=== PATIENT | female | born 1940 ===

== ENCOUNTER 2023-12-22 10:14 | Outpatient (CLI) | payer OTHER, SELFPAY ==
--- NOTE | 2023-12-22 10:00 | DI.RAD_ITS ---
Exam(s) XR HIP LT COMPLETE AP PELVIS EXAM: XR HIP LT COMPLETE AP PELVIS CLINICAL HISTORY: left hip DJD; bony lucency on prior femur xrays. TECHNIQUE: 2D digital imaging was performed of the left hip. Three views were obtained. AP pelvis and lateral left hip views were obtained. COMPARISON: CR XR HIP MIN 2V LT from 09/12/2023 CR XR FEMUR 2V LT from 09/12/2023 FINDINGS: BONES: No acute fracture is present. No bony destructive lesion is seen. JOINTS: No dislocation present. There are moderate degenerative changes seen in the left hip characte rized by joint space narrowing and osteophytes. The patient has a prior left total hip replacement. SOFT TISSUE: Normal. IMPRESSION: 1. No acute or healing fracture or dislocation is identified. 2. Moderate degenerative changes seen in the left hip. DATA REPOSITORY: RADIATION DOSE DELIVERED:
== END 2023-12-22 10:15 | disposition home or self-care (01) ==
LOC: DIORS 10:15
PROVIDERS: PCP Physician Assistant Medical; Referring Provider Physician Assistant Medical; Visit Provider Physician Assistant
DX: M16.12 Unilateral primary osteoarthritis, left hip (principal)
CPT/HCPCS: 20611; 99203; J1010; 73502

== ENCOUNTER → 2024-05-10 10:16 | Outpatient (BNVA) | payer MEDICARE, SELFPAY | PROVIDERS: PCP Physician Assistant Medical; Referring Provider Physician Assistant Medical | DX: M16.12 Unilateral primary osteoarthritis, left hip (principal) | CPT/HCPCS: 20611; 99214; J1010 ==

== ENCOUNTER 2024-07-29 13:43 | Outpatient (CLI) | payer MEDICARE, SELFPAY ==
--- NOTE | 2024-07-29 13:30 | DI.RAD_ITS ---
Exam(s) XR HIP LT COMPLETE AP PELVIS EXAM: XR HIP LT COMPLETE AP PELVIS CLINICAL HISTORY: left hip DJD. TECHNIQUE: 2D digital imaging was performed. Two views. COMPARISON: CR XR HIP LT COMPLETE AP PELVIS from 12/22/2023 FINDINGS: BONES: No acute fracture is present. No bony destructive lesion is seen. Stable appearance of right t otal hip prosthesis. JOINTS: No dislocation present. The SI joints and pubic symphysis are intact. There are moderate yojana re degenerative changes of the left hip prominent periarticular spurring and joint space narrowing. Findings have mildly progressed from the prior exam. SOFT TISSUE: Vascular calcifications. IMPRESSION: Advanced degenerative changes of the left hip. Stable appearance of right hip prosthesis. DATA REPOSITORY: RADIATION DOSE DELIVERED:
== END 2024-07-29 13:44 | disposition home or self-care (01) ==
LOC: DIORS 13:43
PROVIDERS: PCP Physician Assistant Medical; Referring Provider Physician Assistant Medical; Visit Provider Student in an Organized Health Care Education/Training Program
DX: M16.12 Unilateral primary osteoarthritis, left hip (principal); Z96.641 Presence of right artificial hip joint
CPT/HCPCS: 99214; 73502

== ENCOUNTER 2025-01-31 02:58 | Outpatient (CLI) | payer MEDICARE, SELFPAY ==
[2025-01-31 11:07] LABS: HCT 41.3 % (36.0-46.0); HGB 13.4 g/dL (11.2-15.7); MCH 27.7 pg (27.0-33.0); MCHC 32.4 % (32.0-36.0); MCV 86 fL (80-95); MPV 10.5 fL (8.0-11.0); Platelet Count 292 10^3/uL (130-400); RBC 4.83 10^6/uL (3.93-5.22); RDW 14.8 % (11.7-14.6); RDW-SD 46.5 fL; WBC 9.89 10^3/uL (4.4-10.8)
[2025-01-31 11:29] LABS: Anion Gap 9.8 mmol/L (3-11); BUN 13 mg/dL (7-18); CO2 27.2 mmol/L (21.0-32.0); Calcium 9.1 mg/dL (8.5-10.1); Chloride 105 mmol/L (98-107); Glucose 107 mg/dL (74-106); Potassium 3.2 mmol/L (3.5-5.1); Sodium 142 mmol/L (136-145)
== END 2025-01-31 02:59 | disposition home or self-care (01) ==
LOC: LBO 03:00
PROVIDERS: PCP Physician Assistant Medical; Visit Provider Student in an Organized Health Care Education/Training Program
DX: M16.12 Unilateral primary osteoarthritis, left hip (principal); Z01.818 Encounter for other preprocedural examination
CPT/HCPCS: 36415; 80048; 85027

== ENCOUNTER 2025-02-05 07:16 | Observation (INO) | payer MEDICARE, SELFPAY ==
[2025-02-05] VITALS (40 sets, daily range): BP systolic 108–169; BP diastolic 51–79; PULSE 60–90; RESP 11–25; TEMP 36.5–37.2; O2SAT 92–99; BMI 18.3
--- NOTE | 2025-02-05 07:18 | W.PM.DSUDISC ---
Date of service: 02/05/25 Discharge Plan Disposition Condition: Good Discharge Details Reason For Visit: OA L Hip Admit Date/Time: 02/05/25 07:16 Admit Provider: Evgeny Cosme Attending Provider: Evgeny Cosme Primary Care Provider: Kiersten Garvin Home Meds and New Rx's Prescriptions: New acetaminophen 500 mg tablet 1,000 mg PO TID Qty: 90 3RF aspirin 81 mg tablet,delayed release (DR/EC) 81 mg PO BID Qty: 60 0RF celecoxib 200 mg capsule 200 mg PO BID Qty: 60 0RF dexamethasone 4 mg tablet 4 mg PO DAILY Qty: 2 0RF docusate sodium 100 mg capsule 100 mg PO BID PRNQty: 28 0RF tramadol 50 mg tablet 50 mg PO Q4H PRN (Reason: pain) Qty: 12 0RF Continued cetirizine 10 mg tablet 10 mg PO DAILY PRN diltiazem HCl 240 mg capsule,extended release 24hr 240 mg PO DAILY ketorolac 0.5 % drops 1 drp ophthalmic (eye) QID omeprazole 20 mg capsule,delayed release(DR/EC) 20 mg PO DAILY Prolia 60 mg/mL syringe 60 mg subcut [id number] Patient Comments: pt. unsure of next dose sertraline 100 mg tablet 100 mg PO DAILY cholecalciferol (vitamin D3) 10 mcg (400 unit) capsule 10 mcg PO DAILY cyanocobalamin (vitamin B-12) 1,000 mcg tablet 1,000 mcg PO DAILY Patient Comments: TAKE ONE TABLET BY MOUTH EVERY DAY folic acid 1 mg tablet 1 mg PO DAILY Patient Comments: TAKE ONE TABLET BY MOUTH EVERY DAY Discontinued acetaminophen 325 mg tablet 650 mg PO Q6H PRN No Action Systane Balance 0.6 % drops 1 drp ophthalmic (eye) DAILY PRN Discharge Instructions Additional Instructions: Total Hip Discharge Instructions Activity: The most important activity is to walk. You should try to take short walks a few times a day. You have no restrictions on movement or positioning, but do not try to force what you do. You will find some stiffness and weakness with hip flexion (lifting your knee). Do not try to strengthen this too early, continue to practice walking and stairs and this will come. - Outpatient physical therapy can be helpful to help return you to a normal gait and improve your flexibility and strength. This can start around 2 weeks. For some patients, it´s not necessary. Usually this is determined at the time of discharge or at the first post-operative visit. - You should wear the SADIQ hose on both legs for 2 weeks. Dressing: Keep the surgical dressing in place for at least one week. After the first week it may be removed and replace with light gauze and tape or nothing. It may get wet after 3 days but avoid soaking the dressing. If it gets wet, just lightly pat dry. It is important to always keep some gauze between skin folds, especially when you are sitting. Spend some time with the wound exposed when you are lying flat as the incision does wrinkle onto itself. Medications: - You should take Tylenol and an anti-inflammatory Celebrex as your primary pain control medications. If the Celebrex is too expensive or not covered, please call the office for another alternative (Advil/Ibuprofen or Naproxen/Aleve). - You have been prescribed a stronger pain medication tramadol for breakthrough pain, take as needed as prescribed. - You will continue your omeprazole to help reduce stomach acid and reflux. - You have also been prescribed Decadron to help with post-operative nausea and pain. You will take this for two days starting tomorrow. - You will be taking Aspirin 81mg twice a day for DVT prevention unless instructed otherwise. - If you have constipation you should take Colace or Miralax (both [id number]). It takes most people 3-4 days to have a bowel movement. Follow-up: 2 weeks If you have any acute concerns or questions, please do not hesitate to contact the office at [phone]. You may contact Dr. Cosme with any questions after hours through the hospital at [phone] or on his cell phone at [phone]. Stand Alone Forms: Anesthesia Discharge Inst., Guillermo Perry (U), Portal Information Referrals: Evgeny Cosme MD [ [facility] STAFF PHYSICIAN, Orthopaedic Surgical] - 02/17/25 1:45 pm Equipment/Supplies: Walker Activity:: Activity as Tolerated Shower/Bathe:: 72 hours Diet:: As Tolerated DS: Diagnosis Discharge Diagnosis (1) Degenerative joint disease of left hip: Status: Resolved
[2025-02-05 07:58] LABS: Potassium 3.5 mmol/L (3.5-5.1)
--- NOTE | 2025-02-05 08:11 | W.ANESPRE ---
General Info Date of Service Date Performed: 02/05/25 Height: 5 ft 2 in Weight: 45.5 kg Body Mass Index (BMI): 18.3 Surgical Procedure: Operation Date: 02/05/25 09:20 Proposed Procedure Side Surgeon p Hip Total Hip Anterior, Corail Left Evgeny Cosme MD Meds Allergies and Home Medications Allergies Allergy/AdvReac Type Severity Reaction Status Date / Time ciprofloxacin Allergy Severe tongue Verified 02/05/25 07:45 swelling Sulfa (Sulfonamide Allergy Severe Other (See Verified 02/05/25 07:45 Antibiotics) Comment) Home Medication Medication Instructions Recorded cetirizine 10 mg tablet 10 mg PO DAILY PRN 11/14/23 cholecalciferol (vitamin D3) 10 10 mcg PO DAILY 11/14/23 mcg (400 unit) capsule denosumab 60 mg/mL subcutaneous 60 mg subcut [id number] 11/14/23 syringe (Prolia) diltiazem HCl 240 mg 240 mg PO DAILY 11/14/23 capsule,extended release 24 hr ketorolac 0.5 % eye drops 1 drp ophthalmic (eye) QID 11/14/23 omeprazole 20 mg capsule,delayed 20 mg PO DAILY 11/14/23 release sertraline 100 mg tablet 100 mg PO DAILY 11/14/23 cyanocobalamin (vitamin B-12) 1,000 mcg PO DAILY 02/03/25 1,000 mcg tablet folic acid 1 mg tablet 1 mg PO DAILY 02/03/25 acetaminophen 500 mg tablet 1,000 mg (2 x 500 mg) PO TID #90 02/05/25 tabs aspirin 81 mg tablet,delayed 81 mg PO BID #60 tabs 02/05/25 release celecoxib 200 mg capsule 200 mg PO BID #60 caps 02/05/25 dexamethasone 4 mg tablet 4 mg PO DAILY #2 tabs 02/05/25 docusate sodium 100 mg capsule 100 mg PO BID PRN #28 caps 02/05/25 propylene glycol 0.6 % eye drops 1 drp ophthalmic (eye) DAILY PRN 02/05/25 (Systane Balance) tramadol 50 mg tablet 50 mg PO Q4H PRN pain #12 tabs 02/05/25 Current Visit Medications: Current Medications Generic Name Dose Route Start Last Admin Trade Name Freq PRN Reason Stop Dose Admin Acetaminophen 1,000 mg 02/05/25 06:00 Acetaminophen 500 Mg Tab PO 02/05/25 23:59 PREOP JUAN A Acetaminophen 1,000 mg 02/05/25 07:16 Acetaminophen 500 Mg Tab PO 03/07/25 07:15 TID PRN PRN Analgesia Celecoxib 400 mg 02/05/25 06:00 Celecoxib 200 Mg Cap PO 02/05/25 23:59 PREOP JUAN A Docusate Sodium 100 mg 02/05/25 07:16 Docusate Sodium 100 Mg Cap PO 03/07/25 07:15 BID PRN PRN Constipation Ringer's Solution 1,000 mls @ 80 mls/hr 02/05/25 06:00 IV 02/05/25 23:59 INFUSION JUAN A Cefazolin Sodium/Dextrose 2 gm in 50 mls @ 100 mls/hr 02/05/25 06:00 Ancef Duplex IVPB 02/05/25 23:59 PREOP JUAN A Tranexamic Acid/Sodium Chloride 1,000 mg in 100 mls @ 600 mls/hr 02/05/25 06:00 IVPB 02/05/25 23:59 PREOP JUAN A IV Miscellaneous Supplies 1 each 02/05/25 06:00 Iv Access IV 02/05/25 23:59 DIRECTED JUAN A Ondansetron HCl 4 mg 02/05/25 07:16 Ondansetron 4 Mg/2 Ml Vial IVP 03/07/25 07:15 Q6H PRN PRN Nausea Polyethylene Glycol 17 gm 02/05/25 07:16 Polyethylene Glycol 3350 17 Gm Packet PO 03/07/25 07:15 BID PRN PRN Constipation Sodium Chloride 0 ml 02/05/25 06:00 Normal Saline Flush 10 Ml Syr IV 02/05/25 23:59 PRN PRN Sodium Chloride 0 ml 02/05/25 06:00 Normal Saline 10 Ml Vial IJ 02/05/25 23:59 DIRECTED PRN Sterile Water 0 ml 02/05/25 06:00 Water,Injection,Sterile 10 Ml Vial IJ 02/05/25 23:59 DIRECTED PRN Tramadol HCl 50 mg 02/05/25 07:24 Tramadol 50 Mg Tab PO 03/07/25 07:23 Q4H PRN PRN PFSH Active Problems Active Problems: Problem Status Onset Code Degenerative joint disease of left hip Chronic M16.12 Tachycardia Acute R00.0 Medical History Medical History (Updated 02/05/25 @ 08:38 by Fifi Martin RN) H/O sigmoidoscopy w/polypectomy, DOS 08/27/18 Osteoarthritis of right knee Hypertensive disorder Hemorrhoids Surgical History Surgical History (Updated 02/05/25 @ 08:38 by Fifi Martin RN) History of total right hip replacement History of tubal ligation History of appendectomy History of cholecystectomy History of cataract surgery H/O wrist surgery Tobacco Smoking/Tobacco Use Status: Never Passive smoking exposure: No Alcohol Alcohol Intake: current Alcohol intake frequency: holidays/special occasions only Substance Use Substance use type: does not use Details: alcohol: t-30 Vital Signs and Lab Results Vital Signs Most Recent Vital Signs in EMR: Most Recent Vital Signs Temp Pulse Resp BP Pulse Ox 36.5 C 83 18 137/73 97 02/05/25 07:59 02/05/25 07:59 02/05/25 07:59 02/05/25 07:59 02/05/25 07:59 Lab Results 02/05/25 07:41 Complete Blood Count: WBC, (4.4-10.8) 9.89 10^3/uL 01/31/25, 11:00 RBC, (3.93-5.22) 4.83 10^6/uL 01/31/25, 11:00 Hgb, (11.2-15.7) 13.4 g/dL 01/31/25, 11:00 Hct, (36.0-46.0) 41.3 % 01/31/25, 11:00 Plt Count, (130-400) 292 10^3/uL 01/31/25, 11:00 Complete Metabolic Panel: Sodium, (136-145) 142 mmol/L 01/31/25, 11:00 Potassium, (3.5-5.1) 3.5 mmol/L Today, 07:41 Chloride, (98-107) 105 mmol/L 01/31/25, 11:00 Carbon Dioxide, (21.0-32.0) 27.2 mmol/L 01/31/25, 11:00 BUN, (7-18) 13 mg/dL 01/31/25, 11:00 Creatinine, (0.55-1.02) 0.6 mg/dL 01/31/25, 11:00 Est GFR (CKD-EPI 2020), (mL/min/1.73m2) 89.56 01/31/25, 11:00 Calcium, (8.5-10.1) 9.1 mg/dL 01/31/25, 11:00 Glucose, (74-106) 107 mg/dL H 01/31/25, 11:00 Anesthesia Assessment and Plan Anesthesia History Personal History: No History of Anesthesia Complications Family History: No Family History of Anesthesia Complications Exercise Tolerance Exercise Tolerance: Metabolic Equivalents>4 Pertinent Negatives Pertinent Negatives: No Symptoms of GERD, No Major Pulmonary Symptoms or Complaints and No History of CVA/TIA Cardiac & Pulmonary Exam Cardiac Exam: Normal S1/S2 Heart Sounds Pulmonary Exam: Clear Bilateral Breath Sounds Implantable Cardiac Device Does patient have a Pacemaker or an ICD?: No Airway Exam Known Difficult Airway: No Mallampati Class: 2 Mouth Opening: Normal (> 3cm) Thyromental Distance: Greater than 3 cm Neck Range of Motion: Full ROM Neck Circumference: Normal Teeth Condition: Generalized Poor Dentition and Removable Dentures/Plates Upper ASA Classification ASA Score: ASA 2 Emergency Case?: No NPO Status NPO Status: NPO Clears >2 hours, Solids >8 hours Anesthesia Plan Resuscitation Status: Full Code Anesthesia Technique: Spinal Anesthesia (Backup GETA. ) Airway Planned: Natural Airway Monitors Used: Standard Monitors Preoperative Comments:: History of hypokalemia with downward trend per VITL. Preoperative K drawn and resulted 3.5, good to proceed.
[2025-02-05] MEDS: Celecoxib 200 MG CAP 400 MG PO (08:14)
[2025-02-05] MEDS: Acetaminophen 500 MG TAB 1000 MG PO (08:14)
--- NOTE | 2025-02-05 08:15 | DI.RAD_ITS ---
Exam(s) XR HIP LT IN OR EXAM: XR HIP LT IN OR CLINICAL HISTORY: Degenerative joint disease of left hip. TECHNIQUE: 2D and realtime digital imaging was performed. COMPARISON: No exams were available for comparison FINDINGS: Hard copy images show placement of a left hip prosthesis. The alignment appears satisfactory. Please see procedure note for details. Fluoro time: 23.4seconds RADIATION DOSE DELIVERED: Ka,r=1.54 mGy
[2025-02-05] MEDS: Lactated Ringers 1,000 ML 80 ML IV (08:20)
--- NOTE | 2025-02-05 10:09 | ROE_ITS ---
Operative Note Operative Note PRE-OP DIAGNOSIS: Left Hip Osteoarthritis POST-OP DIAGNOSIS: same PROCEDURE: Left Anterior Total Hip Arthroplasty with Intraoperative Navigation SURGEON: Evgeny Cosme FOOD PRODUCTION MACHINE OPERATOR: Damien Carvalho ANESTHESIA TYPE: General LMA/ETT Refer to Anesthesia Record ESTIMATED BLOOD LOSS: 200 PATHOLOGY: none sent TOURNIQUET TIME: 0 COMPLICATIONS: None Patient was transported to: PACU Patient's condition: stable Implants: 1. Depuy Emphasys Acetabular Component, 50mm 2. Depuy Acetabular Liner, 63s97ek 3. Depuy Corail Short Neck 135 Degree Collared Femoral Stem, Size 13 4. Depuy Altrx Ceramic Femoral Head, Size 36+5mm Indications: I have seen Kasia in clinic for symptoms of hip arthritis, confirmed with radiographic findings. She has exhausted nonoperative methods and was having significant limitations in daily function and desired better function and less pain. I discussed the technical details of a hip replacement. I explained the risks of the procedure to include, but not limited to, bleeding, infection, pain, stiffness, fracture, damage to nerves and vessels, damage to muscles and tendons, loosening, instability, leg length inequality, need for repeat procedure, blood clot and cardiopulmonary demise. Despite these risks, Kasia elected to proceed. Findings: There was significant signs of arthritis throughout the hip. Procedure Description: Kasia was greeted in the preoperative holding area where the correct side was identified and marked. The consent was reviewed with the patient and signed. The history and physical was updated. All questions were answered. She was taken back to the operating room. A spinal anesthestic was then attempted but unsuccessful. Thus a general anesthetic was administered. The feet were wrapped with cast padding and Coban and then placed into the boot liners and then into the boots. Care was taken to protect the skin and make sure the heels were fully down and the boots were stable. The patient was then positioned onto the HANA table. Both legs were held in a neutral position. SCDs were applied. The patient was then slid down onto a peroneal post. Prophylactic antibiotics in the form of Cefazolin were administered. 1g of Tranxemic Acid was given intravenously within 30 minutes of incision. The left leg was then prepped with Chloraprep and draped in a standard fashion. A second prep with Chloraprep was performed prior to placement of a shower-curtain type drape with Iodine impregnated skin protection. A timeout to confirm correct identity, side and site, procedure, allergies, anesthesia, and medical concerns was performed. An obliquely oriented incision was made starting lateral to the ASIS and running distal over the Tensor Fascia Joie (TFL) muscle belly toward the fibular head, approximately 10cm. The skin and soft tissue was dissected sharply, through Chaka´s fascia, and to the fascia of the TFL. With the fascia and superior border of the IT band identified, the fascia was incised with a new knife just above any perforators from the IT band. The TFL muscle belly was bluntly dissected away from the fascia and moved laterally. The fat between TFL and rectus was identified to ensure the dissection was not within the TFL. Blunt dissection created space between abductors and the capsule and retractor was placed over the lateral femoral neck. The fibers of the rectus femoris tendon were identified and these were freed from the anterior capsule. A second cobra retractor was placed around the medial femoral neck. The TFL was further retracted laterally to show the deep fascia. Careful dissection through this layer identified three main crossing vessels of the lateral femoral circumflex. These were cauterized in multiple locations and then cut without any noticeable bleeding. The TFL was further released bluntly from the deep fascia to expose anterior hip capsule and fat The soft tissue orthopaedic retractor was then placed beneath the TFL and against sartorius and medial soft tissues to protect and retract the soft tissues. A T-capsulotomy was then performed starting at the superior lateral acetabulum and moving distally to the intertrochanteric ridge. These capsular flaps were tagged with a No. 1 Vicryl and elevated from within. The capsular flaps were released to the shoulder of the lateral neck and to the lesser trochanter to give excellent visualization of the proximal femur. A neck osteotomy was performed using an oscillating saw based on preoperative templates. This cut started in the shoulder and of the lateral neck and exited medially. The saw was at all times directed medially to avoid injury to the greater trochanter. Gross traction was applied to the leg and the osteotomy opened. The femoral head was removed with a corkscrew, making sure to protect the TFL on its exit. Traction was released after head removal. This was measured on the back table to determine the starting reamer size. Portions of the rectus obscuring visualization were minimally elevated off the superior acetabulum. An anterior retractor was placed over the anterior wall between capsule and labrum and attached to the Gripper retraction system. The femur was rotated to 90 degrees and medial capsule was fully released until the lesser trochanter was palpable and visible; the femur was returned to 30 degrees. A posterior retractor was placed similarly between capsule and labrum. This provided excellent visualization. The contents of the cotyloid fossa were removed with electrocautery and the labrum was removed with a knife. There was a notable floor osteophyte. There was significant chondromalacia of the superior acetabulum. Acetabular reaming began with a 46mm reamer. This first reaming was directed anterior to posterior and medial to get down to the true floor. This was inspected and reamed until the true floor was reached. The anterior retractor was then released and entry and exit was provided by traction on the capsular flaps. I then reamed sequentially up to a 50mm reamer where good fit was obtained. The larger reamers were oriented based on anatomical reference of the anterior and lateral mclaughlin to ensure proper abduction and anteversion. Positioning and size was confirmed with the fluoroscopy. A 50mm Depuy Emphasys acetabular component was selected. The acetabulum was reamed around the periphery with the selected acetabular size to prevent a rim fit. The deep tissues were irrigated. The acetabular component was then impacted in a position of about 40-45 degrees of abduction and 15-20 degrees of anteversion, using the patient´s anatomy as the ultimate landmark. Fluoroscopy was used to confirm this. There was excellent system configuration specialist of the acetabular component and the inserting handle was removed. The acetabular liner, Depuy [id number] polyethylene liner, was inserted and lined up with the tines of the acetabular component. There was no soft tissue interposition. The liner was then impacted into position and confirmed to be well-seated. A portion of the tracee-articular cocktail was then injected around the acetabulum into the capsule and periosteum. This cocktail consisted of 123mg of Ropivacaine, 0.25mg of Epinephrine, 0.04mg of Clonidine, and 15mg of Ketorolac, diluted to 50cc. The leg was rotated to 120 degrees. Any remaining medial capsule was released until the lesser trochanter was easily palpable. A retractor was placed medially. The lateral capsule was further released into the shoulder to allow access to the greater trochanter. A Doshi retractor was placed over the greater trochanter which allowed the trochanter to flip in front of the capsule for excellent exposure. The leg was brought down into maximal extension and 20 degrees of adduction while ensuring there was no impingement on the acetabulum. Any remnant capsule within the trochanter was released. Piriformis and obturator externis were identified and protected. There was excellent access to the proximal femur. The lateral neck remnant was removed with a rongeur. A blunt canal probe was used to identify the canal and trajectory for later broaching. A box osteotome initiated the broach course. A small curved rasp and a curved curette were used to work laterally. Broaching then began with a size 8 Corail broach. This was inserted manually around the trochanter and into the canal before mallet blows. The broach was seated to a few millimeters below the cut level based on the neck cut and the preoperative template. Sequential broaching was continued with the [employer] pneumatic broaching device until a tight fit was obtained with good rotational control of the femur. A trial short neck was inserted along with a +5 trial head. The leg was brought out of extension and adduction and then reduced with traction and internal rotation. The leg was stable anteriorly in a position of 30 degrees of extension and 90 degrees of external rotation. Fluoroscopy was used to ensure there was no fracture and the stem was seated well. Leg lengths were checked with an AP pelvis and pelvic reference points. Internal Gaming navigation system was used to confirm appropriate positioning and leg length and offset. Once content with the desired offset and leg lengths, the leg was brought back into extension, external rotation and adduction. The periosteum and surrounding tissue was injected with remaining portion of the tracee-articular cocktail. The proximal femur was irrigated as well as the deep tissues. The Depuy Corail short neck 135 degree collared stem, size 13, was then manually inserted into the proximal femur making sure to control rotation. It was then malleted into position with light blows, giving breaks to allow bone expansion and decrease risk of fracture. The selected Depuy Altrx Ceramic Head, size 36+5mm, was then placed onto the clean and dry trunnion and secured with impaction onto the tapered fit. The leg was brought back out of extension and adduction and reduced with traction and internal rotation. Stability was confirmed with no shuck at 90 degrees of external rotation and 30 degrees of extension. No impingement through range of motion arc. Final x-ray images were obtained with fluoroscopy to confirm adequate positioning and no intraoperative fracture. The deep tissues were thoroughly irrigated with Surgiphor, betadine solution. This was allowed to sit in the wound for 3 minutes before being thoroughly irrigated out with normal saline. The capsule was then reapproximated with the previously placed sutures and the indirect head of the rectus was inspected and reapproximated with a #1 Vicryl. The TFL fascia was finally closed with a No. 2 Stratafix, barbed suture. Deep tissues were then reapproximated with 0 Vicryl and a running 2-0 Vicryl. The skin was closed with a running 4-0 Monocryl in a subcuticular fashion. This was reinforced with skin glue. A Mepilex silver dressing was applied. At the end of the case, all counts were correct. Kasia was transferred to the hospital bed without difficulty and suffering no apparent complication. She has a good prognosis. Physical therapy will start today and without restrictions, weight-bearing as tolerated. Aspirin 81mg BID will be used for DVT prophylaxis. Date of Procedure: 02/05/25
[2025-02-05] MEDS: ceFAZolin 2 GM/50 ML BAG IVPB (10:14)
[2025-02-05] MEDS: TRANEXAMIC ACID/SOD. CHL. 1,000 MG/100 ML BAG 600 MG IVPB (10:20)
[2025-02-05] MEDS: EPINEPHrine 1 MG/ML AMP pres-free ×2 (10:33→13:02)
[2025-02-05] MEDS: ROPIvacaine 0.2% 200 MG/100 ML BAG ×2 (10:34→13:06)
[2025-02-05] MEDS: Ketorolac 30 MG/ML VIAL ×2 (10:34→13:06)
[2025-02-05] MEDS: fentaNYL 100 MCG/2 ML VIAL IVP ×2 (11:55→12:08)
--- NOTE | 2025-02-05 12:01 | W.ANESPOSTOP ---
Postoperative Evaluation Date, Time and Location Date Performed: 02/05/25 Time Performed: 12:01 Patient Location: Day Surgery Unit Vital Signs Most Recent Imported Vital Signs: Most Recent Vital Signs Temp Pulse Resp BP Pulse Ox 36.6 C 63 11 L 128/55 L 93 02/05/25 11:56 02/05/25 11:56 02/05/25 11:56 02/05/25 11:55 02/05/25 11:56 Pain Score Most Recent Pain Score: Most Recent Pain Score Pain Level 0 02/05/25 11:40 Assessment Mental Status: Arousable with meaningful communication Airway and Respiratory Function: Patent airway with normal (patient baseline) respiratory exam Cardiovascular Function: Hemodynamically Stable Hydration Status: Adequately Hydrated Nausea & Vomiting: No Nausea or Vomiting Pain: Pain is tolerable per patient Peripheral Nerve Block: Patient did not receive a nerve block
--- NOTE | 2025-02-05 12:59 | W.PC.ACHO ---
Registration Status: REG SDC Primary Language: Preferred Language: Medical / Surgical History (Last Reviewed 02/05/25 @ 08:01 by Aminta Castillo) H/O sigmoidoscopy Osteoarthritis of right knee Hypertensive disorder Hemorrhoids (Last Reviewed 02/05/25 @ 08:01 by Aminta Castillo) History of total right hip replacement History of tubal ligation History of appendectomy History of cholecystectomy History of cataract surgery H/O wrist surgery Most Recent Vital Signs Temperature 36.5 C 02/05/25 12:50 Pulse 62 02/05/25 12:50 Pulse Rhythm Regular 02/05/25 07:59 Pulse 69 02/05/25 12:35 Respiratory Rate 16 02/05/25 12:35 Respiratory Depth Normal 02/05/25 07:59 Blood Pressure 121/57 L 02/05/25 12:50 Blood Pressure Mean 81 02/05/25 12:31 Pulse Oximetry 96 02/05/25 12:50 Respiratory End-tidal CO2 33 02/05/25 12:27 Oxygen Delivery Method Nasal Cannula 02/05/25 12:50 Oxygen Flow Rate 2 02/05/25 12:50 Pain Level 3 02/05/25 12:40 Allergies ciprofloxacin Allergy (Severe, Verified 02/05/25 07:45) tongue swelling Sulfa (Sulfonamide Antibiotics) Allergy (Severe, Verified 02/05/25 07:45) Other (See Comment) throat tightness Active Medications Generic Name Dose Route Start Last Admin Trade Name Mackq PRN Reason Stop Dose Admin Acetaminophen 1,000 mg 02/05/25 06:00 02/05/25 08:14 Acetaminophen 500 Mg Tab PO 02/05/25 23:59 1,000 mg PREOP JUAN A Administration Celecoxib 400 mg 02/05/25 06:00 02/05/25 08:14 Celecoxib 200 Mg Cap PO 02/05/25 23:59 400 mg PREOP JUAN A Administration Ringer's Solution 1,000 mls @ 80 mls/hr 02/05/25 06:00 02/05/25 12:21 IV 02/05/25 23:59 80 mls/hr INFUSION JUAN A Infusion Cefazolin Sodium/Dextrose 2 gm in 50 mls @ 100 mls/hr 02/05/25 06:00 02/05/25 10:35 Ancef Duplex IVPB 02/05/25 23:59 Infused PREOP JUAN A Infusion Tranexamic Acid/Sodium Chloride 1,000 mg in 100 mls @ 600 mls/hr 02/05/25 06:00 02/05/25 10:30 IVPB 02/05/25 23:59 Infused PREOP JUAN A Infusion IV IV Catheter Type [Right Wrist] Peripheral IV IV Catheter Gauge [Right Wrist 20 ] Diet Orders Category Date Time Status Regular/Normal [DIET] Nutrition 02/05/25 Lunch Active Diagnostics 02/05/25 Range/Units 07:41 Potassium 3.5 (3.5-5.1) mmol/L Intake and Output - 24 Hour Total 01/01/25 07:22 thru 02/05/25 12:40 Intake Total 900 Output Total 200 Balance 700 Weight 45.5 kg Intake: IV 900 Output: Estimated Blood Loss 200 Other: Emesis Description None Attestation Statement: By documenting the first initial, last name, and credentials of the reporting nurse below, both parties acknowledge that all relevant information regarding the patient handoff has been communicated, and that all questions have been addressed to ensure continuity and safety of care. Additional Patient Information/Comments: Report Received From: Report received from PACU, Shama NICE. Mary total hip replacement. stable, pt states i have cow webs general anesthesia given, see pacu report for angie. arrived to unit with this RN
[2025-02-05] MEDS: Tranexamic Acid 650 MG TAB 1300 MG PO (13:01)
--- NOTE | 2025-02-05 14:21 | PHA.REVIEW2 ---
Pharmacy Admission Review Admission Clinical Review Admission Pharmacy Review: ciprofloxacin Allergy (Severe, Verified /03/20 07:45) tongue swelling Sulfa (Sulfonamide Antibiotics) Allergy (Severe, Verified 02/05/25 07:45) Other (See Comment) Resuscitation Status Full Code Height 5 ft 2 in Weight 45.5 kg Comments Comments/Follow Ups: POD#0 Left Anterior Total Hip Arthroplasty with Intraoperative Navigation Pharmacy Admission Review Renal Dosing Medications needing adjustments: Reviewed (CrCl 31.11 mL/min) List of meds needing interventions: Current medications are okay Anticoagulation DVT Prophylaxis: Reviewed (SCDs/TEDs - POD#0) Relevant Labs Relevant Labs: Potassium 3.5 mmol/L (3.5-5.1) 02/05/25 07:41 Electrolytes, C-Reactive P, ESR: Reviewed (No new labs) Cardiac Review BP, HR, EF%: Reviewed (BP and HR WNL) List meds needing interventions: Has order for diltiazem CD 240mg daily QTc Review QTc: Reviewed (No EKG on file) IV to PO Switch IV Medications: Reviewed (ondansetron) Home Meds Home Med List reviewed: Reviewed Relevent Home Meds Not ordered & why?: vitamin D3, vitamin B12, Prolia (every 6 months), ketorolac eye drops and Systane eye drops (PRN) Current Meds Current Medication Order Review: Intervened Comments: Discontinued preop orders (complete) Comments Comments/Follow Ups: POD#0 Left Anterior Total Hip Arthroplasty with Intraoperative Navigation
--- NOTE | 2025-02-05 14:50 | IN_ITS ---
PT Notes Visit Reasons: L THR Physical Therapy Inpatient Initial Evaluation Date: 02/05/2025 Referring Doctor: GAURI Johnston PT Orders: PT CONSULT: S/P Ortho surgery Precautions: Fall. Standard. WBAT on the left LE with AD. Patient Profile/Admitting Diagnosis: Kasia is an 84-year-old female with degenerative joint disease of the left hip and is status post left total hip arthroplasty on postoperative day 0. 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 Independent with all aspects of ADLs prior to surgery although was using her walker just a few days prior to surgery due to worsening pain in the left hip. Equipment Owned/DME: FWW Subjective: Complained of 0/10 pain in the left hip at rest. Reported soreness on the left hip with weightbearing and movement. Denied headache, chest pain, and lightheadedness throughout session. Objective: General Observation: Mepilex Ag over surgical incision. TEDS to be legs. IV through right UE. Mental Status: Alert and oriented as to person, place, time, and purpose. Able to pay attention, focus, and respond appropriately. Pain: As above Vital Signs: BP 124/79 mmHg, 75 bpm, and 90% on RA before mobility assessment. ROM: Right Lower Extremity: Hip flexion WFL. Hip abduction WFL. Knee flexion WFL. Ankle dorsiflexion WFL. Ankle plantarflexion WFL. Left Lower Extremity: Hip flexion WFL. Hip abduction WFL. Knee flexion WFL. Ankle dorsiflexion WFL. Ankle plantarflexion WFL. Strength: Right Lower Extremity: Hip flexors 4/5. Hip abductors 4/5. Knee flexors 4/5. Knee extensors 4-/5. Ankle dorsiflexors 4/5. Ankle plantarflexors 4/5. Left Lower Extremity: Hip flexors 4-/5. Hip abductors 4-/5. Knee flexors 4/5. Knee extensors 4/5. Ankle dorsiflexors 4/5. Ankle plantarflexors 4/5. Bed Mobility/Transfers: Minimal cueing provided for use of B hands as needed for support, movement sequence, AD management, and posture to reduce fall risk and minimize pain report Supine to sit stand by assist with HOB at 30 degrees Sit to stand stand by assist with FWW Stand to sit stand by assist with FWW Bed to toilet seat stand by assist with FWW Bed to reclining chair stand by assist with FWW Gait: 250 feet with FWW and contact guard assist of PT and wheelchair follow. Minimal verbal cueing for AD management, posture, limb movement sequence and weight distribution onto walker for safety to decrease pain level and reduce pain report. Denied chest pain, lightheadedness, and headache thorughout session. Balance: Static Sitting: Normal Dynamic Sitting: Normal Static Standing: Fair Dynamic Standing: Fair Special Tests: Mobility Limitations Standardized Measure [facility] AM-PAC 6 clicks Basic Mobility Inpatient Short Form: Raw Score: 22 CMS Score: 21% deficit Informed Consent/Education: Patient was instructed in purpose of PT consult and plan of care. Agreeable to proceed with established PT POC to achieve personal goals. Trained patient with correct performance of exercises below to maximize motor control, joint flexibility, soft tissue extensibility of the L hip musculature to facilitate return to independent functional mobility performance. Access Code: [email or web address] URL: [email or web address] Date: 02/05/2025 Prepared by: Angela Schultz Exercises - Gluteal Sets - 1 x daily - 7 x weekly - 1 sets - 10 reps - 5 hold - Supine Heel Slide - 1 x daily - 7 x weekly - 1 sets - 10 reps - 5 hold - Supine Ankle Pumps - 1 x daily - 7 x weekly - 1 sets - 10 reps - 5 hold - Seated March - 1 x daily - 7 x weekly - 1 sets - 10 reps - 5 hold - Seated Long Arc Quad - 1 x daily - 7 x weekly - 1 sets - 10 reps - 5 hold Assessment: Patient requires the use of a front wheeled walker for mobility ADL performance to maximize independence and reduce fall risk. Only reported minimal soreness on the left hip with weight bearing. Patient presents with clinical signs and symptoms consistent with current/admitting diagnoses that have resulted to mobility limitations, gait instability, generalized weakness, and overall ADL decline as demonstrated by the following impairment level findings: 1. Decreased strength to L hip major muscle groups 2. Impaired standing balance 3. Impaired activity tolerance Impairments are contributing to the following functional limitations: 1. Decline in bed mobility skills 2. Decline in transfer skills 3. Difficulty with ambulation without assistive device and physical assistance 4. Increased completion time for mobility ADL performance 5. Increased risk for falls 6. Difficulty with managing steps alone safely Patient is assessed as a [id number] moderate complexity complexity based on the following: History: 84-year-old female with past medical history as indicated above Examination: Demonstrable impairment in strength, balance, and mobility level with underlying impairments and functional limitations as exhibited above as well as deficit score of 21% utilizing the [facility] Mobility Inpatient Short Form Presentation: Evolving Decision Makin moderate complexity Goals: Goals X1 week 1. Supine-Sit independent 2. Sit-Supine independent 3. Sit-Stand independent 4. Stand-Sit independent with FWW 5. Bed-Chair independent with FWW 6. Chair-Bed independent with FWW 7. Independent gait on level surface with use of FWW for at least 300 feet without report of pain nor dyspnea 8. Independent stair negotiation while holding onto B rails for at least 5 steps without report of pain nor dyspnea 9. Independent with home exercise program 10. Good static and dynamic standing balance/tolerance Plan of Care/Treatment Plan: 1-2x/day, 7 days/week x 1 week. Plan of care has been reviewed with the ALLOCATIONS CLERK providing the service under Physical Therapy direction. Initiate Physical Therapy intervention for pain management as needed, strengthening, bed mobility, transfers, gait, stairs, balance training, and use of assistive device. DISCHARGE RECOMMENDATIONS: Home when medically cleared by orthopedic surgeon. Recommend outpatient PT services in order to optimize functional mobility outcomes and facilitate return to independent community ambulation without an assistive device. TREATMENT CODE/TIME: 28148 x 27 minutes for 1 unit (14: 50–15: 17). Thank you for the opportunity to participate in the care of this patient. Angela Schultz PT, DPT, CLT [facility] [place], [place]
[2025-02-05] MEDS: Normal Saline Flush 10 ML SYR IVP (20:23)
[2025-02-05] MEDS: Celecoxib 200 MG CAP PO (20:23)
[2025-02-05] MEDS: Cetirizine 10 MG TAB PO (20:37)
[2025-02-06 03:33] VITALS: BP 132/75; PULSE 82; RESP 18; TEMP 36.5; O2SAT 95
--- NOTE | 2025-02-06 07:37 | PT.INTREAT ---
PT Notes Visit Reasons: OA L Hip Physical Therapy Inpatient Treatment Note Date: 02/06/2025 Precautions: Fall. Standard. WBAT on the left LE with AD. Subjective: Kasia is in good spirits, looking forward to going home. Reported diminishing soreness in the L hip today. Objective: General Observation: Mepilex Ag over surgical incision. TEDS to be legs. IV access through right UE. Mental Status: Alert and oriented as to person, place, time, and purpose. Able to pay attention, focus, and respond appropriately. Pain: As above Vital Signs: BP 113/71 mmHg, 91 bpm, and 94% on RA before mobility assessment. Bed Mobility/Transfers: Minimal cueing provided for use of B hands as needed for support, movement sequence, AD management, and posture to reduce fall risk and minimize pain report Supine to sit independent Sit to stand independent with FWW Stand to sit independent with FWW Bed to toilet seat independent with FWW Bed to reclining chair independent with FWW Gait: 350 feet in AM, 350 feet in PM with FWW supervision only. Minimal verbal cueing for AD management, posture, limb movement sequence and weight distribution onto walker for safety to decrease pain level and reduce pain report. Denied chest pain, lightheadedness, and headache throughout session. Balance: Static Sitting: Normal Dynamic Sitting: Normal Static Standing: Fair Dynamic Standing: Fair Both in AM and PM sessions, trained patient with correct performance of exercises below to maximize motor control, joint flexibility, soft tissue extensibility of the L hip musculature to facilitate return to independent functional mobility performance. Access Code: [email or web address] URL: [email or web address] Date: 02/05/2025 Prepared by: Angela Schultz Exercises - Gluteal Sets - 1 x daily - 7 x weekly - 1 sets - 10 reps - 5 hold - Supine Heel Slide - 1 x daily - 7 x weekly - 1 sets - 10 reps - 5 hold - Supine Ankle Pumps - 1 x daily - 7 x weekly - 1 sets - 10 reps - 5 hold - Seated March - 1 x daily - 7 x weekly - 1 sets - 10 reps - 5 hold - Seated Long Arc Quad - 1 x daily - 7 x weekly - 1 sets - 10 reps - 5 hold Assessment: Patient requires the use of a front wheeled walker for mobility ADL performance to maximize independence and reduce fall risk. Only reported minimal soreness on the left hip with ambulation task performance. Plan of Care/Treatment Plan: Discharge to home with HEP at [facility] using her FWW. Follow up visit with Dr. Cosme in 2 weeks per protocol. DISCHARGE RECOMMENDATIONS: Home when medically cleared by orthopedic surgeon. Recommend outpatient PT services in order to optimize functional mobility outcomes and facilitate return to independent community ambulation without an assistive device. TREATMENT CODE/TIME: Session 1--02341 x 25 minutes for 2 units (7:37-8:02). Session2 --[id number] x 15 minutes for 1 unit (13;15-1330).
[2025-02-06 07:40] VITALS: BP 113/71; PULSE 89; RESP 17; TEMP 36.4; O2SAT 94
--- NOTE | 2025-02-06 07:53 | PDOC.CMIN ---
Date of service: 02/06/25 Time of Service: 07:54 Care Management Initial Assmt Initial Assessment Reason for Hospitalization: left total hip arthroplasty Functional Status/Living Situation Patient Presentation: Kasia presented yesterday for a left hip replacement. This morning she was sitting up in the chair and denied any pain. She stated that she feels great! She is eager to go home. She has food already prepared for her and feels well supported by her daughter and good friend. Kasia was disappointed to know that she is not able to drive until she has her f/u appointment with ortho. Kasia was very pleasant. She was pleased to introduce her daughter to CM. Kasia denies any worries regarding going home. Town of Residence: [place] Resides with: Alone Significant Other/Family: Local (daughter, Yazmin. Good friend just down the street.) Natural Supports: Yazmin is biggest support Employment Status: Retired Instrumental Activities of Daily Living (ADLs): Independent Medications Medication Management: No Issues/Barriers identified Physical Functioning/Mobility Assistive Device: using a walker prior to surgery but is hopeful to no longer need it Advance Directives Advance Directives: Do you have an Advance Directive: Y 12/22/23, 09:26 AD On File at [facility]: N 12/22/23, 09:26 Date Asked 01/30/25 01/30/25, 12:49 AD Date Reviewed COLST On File at [facility] COLST Date Scanned Code Status Resuscitation Status Full Code Insurance Coverage/Financial Issues Insurance: AARP/.[facility] Mcr Replacement Care Team Visit Care Team Role Provider Type Kiersten Garvin Primary Care Provider [facility] ABUSE THERAPIST InPatient [facility] Hernandez Other Providers OTHER Evgeny Cosme MD Admit Provider [facility] STAFF PHYSICIAN Attending Provider Discharge Potential Discharge Needs: PCP F/U Appt and Surgical F/U Appt (ortho scheduled on 02/17 at 1;45) Anticipated Barriers to Discharge: None Identified Patient/Family Education Needs: Review discharge instructions, discuss Ask Me Three Transportation: Private vehicle Plan: Kasia will discharge home this afternoon with no new services. She will f/u with her PCP and with Dr. Cosme on 02/17 at 1:45 Kasia will transport home in a private vehicle with her daughter. Social Determinants of Health Screening Social Determinants of health last assessed in clinic: 02/06/25 Will the Patient Participate in the Screening?: Yes Do you worry about having a steady place to live?: no Problems where you live: no known problems In the past 12 months, have you had to go without electric, gas, oil or water in your home?: no 1. Within the past 12 months, we worried whether our food would run out before we got money to buy more.: Don't know/refused 2. Within the past 12 months, the food we bought just didn't last and we didn't have money to get more.: Don't know/refused Has lack of transportation kept you from medical appointments or from doing things needed for daily living?: no Has anyone in your life made you feel unsafe or unsupported?: no How hard is it for you to pay for the very basics like food, housing, medical care, and heating? Would you say it is:: Not hard at all Do you want help finding or keeping work or a job?: I do not need or want help If for any reason you need help with day-to-day activities such as bathing, preparing meals, shopping, managing finances, etc., do you get the help you need?: I get all the help I need How often do you feel lonely or isolated from those around you?: Never Do you speak a language other than Burkinan at home?: Yes Does the patient want assistance with any of the above?: No Health Related Social Needs Health related social needs: education (Z55.6) Health related social needs details: none per patient PFSH All Active Problems History of total left hip arthroplasty (Acute 02/05/25) Tachycardia (Acute) Medical History H/O sigmoidoscopy w/polypectomy, DOS 08/27/18 Osteoarthritis of right knee Hypertensive disorder Hemorrhoids Surgical History History of total right hip replacement History of tubal ligation History of appendectomy History of cholecystectomy History of cataract surgery H/O wrist surgery Social History Smoking/Tobacco Use Status: Never Smoking risk assessment performed?: Yes Alcohol Intake: current Alcohol Intake frequency: holidays/special occasions only Drug use: Never Substance use type: does not use Details: alcohol: t-30 Housing: house Do you feel safe at home: Yes Do you feel safe in your relationship?: Yes Additional [facility]
[2025-02-06] MEDS: Normal Saline Flush 10 ML SYR IVP (08:37)
[2025-02-06] MEDS: Acetaminophen 500 MG TAB 1000 MG PO ×2 (08:37→13:49)
[2025-02-06] MEDS: Celecoxib 200 MG CAP PO (08:38)
[2025-02-06] MEDS: Sertraline 100 MG TAB PO (08:38)
[2025-02-06] MEDS: Omeprazole 20 MG CAPCR PO (08:38)
[2025-02-06] MEDS: dilTIAZem CD 120 MG CAPCR 240 MG PO (08:38)
[2025-02-06] MEDS: Folic Acid 1 MG TAB PO (08:38)
[2025-02-06] MEDS: Cetirizine 10 MG TAB PO (08:46)
--- NOTE | 2025-02-06 10:18 | DSE_ITS ---
Date of service: 02/06/25 Time of Service: 09:50 DS: Diagnosis Discharge Diagnosis (1) Degenerative joint disease of left hip: Status: Resolved Discharge Plan Disposition Patient Disposition: Home Condition: Good Discharge Details Reason For Visit: OA L Hip Admit Date/Time: 02/05/25 07:16 Admit Provider: Evgeny Cosme Attending Provider: Evgeny Cosme Primary Care Provider: Kiersten Garvin Hospital Course Hospital Course: Patient was admitted to the medical/surgical floor following the procedure. The surgery was tolerated well without any notable medical, surgical, or anesthetic complications. Mobilization began postoperatively. She was voiding spontaneously. Vitals were stable. Physical therapy worked with the patient and was cleared for discharge home. No acute medical issues. Pain was controlled on oral regimen. Home Meds and New Rx's Prescriptions: New acetaminophen 500 mg tablet 1,000 mg PO TID Qty: 90 3RF aspirin 81 mg tablet,delayed release (DR/EC) 81 mg PO BID Qty: 60 0RF celecoxib 200 mg capsule 200 mg PO BID Qty: 60 0RF dexamethasone 4 mg tablet 4 mg PO DAILY Qty: 2 0RF docusate sodium 100 mg capsule 100 mg PO BID PRNQty: 28 0RF tramadol 50 mg tablet 50 mg PO Q4H PRN (Reason: pain) Qty: 12 0RF Continued cetirizine 10 mg tablet 10 mg PO DAILY PRN diltiazem HCl 240 mg capsule,extended release 24hr 240 mg PO DAILY ketorolac 0.5 % drops 1 drp ophthalmic (eye) QID omeprazole 20 mg capsule,delayed release(DR/EC) 20 mg PO DAILY Prolia 60 mg/mL syringe 60 mg subcut [id number] Patient Comments: pt. unsure of next dose sertraline 100 mg tablet 100 mg PO DAILY cholecalciferol (vitamin D3) 10 mcg (400 unit) capsule 10 mcg PO DAILY cyanocobalamin (vitamin B-12) 1,000 mcg tablet 1,000 mcg PO DAILY Patient Comments: TAKE ONE TABLET BY MOUTH EVERY DAY folic acid 1 mg tablet 1 mg PO DAILY Patient Comments: TAKE ONE TABLET BY MOUTH EVERY DAY Discontinued acetaminophen 325 mg tablet 650 mg PO Q6H PRN No Action Systane Balance 0.6 % drops 1 drp ophthalmic (eye) DAILY PRN Discharge Instructions Additional Instructions: Total Hip Discharge Instructions Activity: The most important activity is to walk. You should try to take short walks a few times a day. You have no restrictions on movement or positioning, but do not try to force what you do. You will find some stiffness and weakness with hip flexion (lifting your knee). Do not try to strengthen this too early, continue to practice walking and stairs and this will come. - Outpatient physical therapy can be helpful to help return you to a normal gait and improve your flexibility and strength. This can start around 2 weeks. For some patients, it´s not necessary. Usually this is determined at the time of discharge or at the first post-operative visit. - You should wear the SADIQ hose on both legs for 2 weeks. Dressing: Keep the surgical dressing in place for at least one week. After the first week it may be removed and replace with light gauze and tape or nothing. It may get wet after 3 days but avoid soaking the dressing. If it gets wet, just lightly pat dry. It is important to always keep some gauze between skin folds, especially when you are sitting. Spend some time with the wound exposed when you are lying flat as the incision does wrinkle onto itself. Medications: - You should take Tylenol and an anti-inflammatory Celebrex as your primary pain control medications. If the Celebrex is too expensive or not covered, please call the office for another alternative (Advil/Ibuprofen or Naproxen/Aleve). - You have been prescribed a stronger pain medication tramadol for breakthrough pain, take as needed as prescribed. - You will continue your omeprazole to help reduce stomach acid and reflux. - You have also been prescribed Decadron to help with post-operative nausea and pain. You will take this for two days starting tomorrow. - You will be taking Aspirin 81mg twice a day for DVT prevention unless instructed otherwise. - If you have constipation you should take Colace or Miralax (both [id number]). It takes most people 3-4 days to have a bowel movement. Follow-up: 2 weeks If you have any acute concerns or questions, please do not hesitate to contact the office at [phone]. You may contact Dr. Cosme with any questions after hours through the hospital at [phone] or on his cell phone at [phone]. Stand Alone Forms: Anesthesia Discharge Inst., Guillermo Perry ([facility]), Portal Information Referrals: Evgeny Cosme MD [ [facility] STAFF PHYSICIAN, Orthopaedic Surgical] - 02/17/25 1:45 pm Activity:: Activity as Tolerated Equipment/Supplies:: Walker Diet:: As Tolerated Discharge Orders Discharge Orders: Discharge Order (Routine); Ordered 02/05/25 Ordered By: Damien Carvalho DS: Summary Time Spent with Patient providing and/or coordinating discharge services: Less than 30 minutes Status at Discharge Functional status at discharge: uses cane/walker Overall status at discharge: patient is progressing back to baseline Mental Status: mental status grossly normal Speech and Movement: speech and movement normal Mood: congruent mood Affect: normal affect Quality:SDOH Health Related Social Needs: Health related social needs education Health related social needs details none per patient Health related social needs details: none per patient Exam Narrative Exam Narrative: Left hip wound c/d/i. Ambulating without limp and without pain. SILT DP/SP/Tib. Psych Mental Status: mental status grossly normal Speech and Movement: speech and movement normal Mood: congruent mood Affect: normal affect DS: Data Vitals/I&O Vitals and I&O: Vital Signs Temperature 36.4 C L 02/06/25 07:40 Temperature Source Temporal Artery Scan 02/06/25 03:33 Pulse 89 02/06/25 07:40 Pulse Rhythm Regular 02/05/25 12:50 Pulse 69 02/05/25 12:35 Respiratory Rate 17 02/06/25 07:40 Respiratory Effort Normal 02/05/25 12:50 Respiratory Depth Normal 02/05/25 12:50 Blood Pressure 113/71 02/06/25 07:40 Blood Pressure Mean 85 02/06/25 07:40 Pulse Oximetry 94 02/06/25 07:40 Respiratory End-tidal CO2 33 02/05/25 12:27 Oxygen Delivery Method Room Air 02/06/25 07:40 Oxygen Flow Rate 0 02/06/25 07:40 Pain Level 2 02/06/25 08:37 Intake & Output 02/05/25 02/05/25 02/06/25 11:59 23:59 11:59 Intake Total 850 / 1400 550 / 1400 790 / 790 Output Total 200 / 200 Balance 650 / 1200 550 / 1200 790 / 790 Weight 45.5 kg Intake: IV 850 / 1160 310 / 1160 Oral 240 / 240 790 / 790 Output: Estimated Blood Loss 200 / 200 Other: Urine Color Yellow Yellow Urine Appearance Clear Clear Urine Odor Normal Normal Comment pt voids to toilet. pt voids to toilet. Emesis Description None None Data Completed and Pending Pending Labs at Discharge: 02/05/25 07:41 Potassium 3.5 PFSH All Active Problems History of total left hip arthroplasty (Acute 02/05/25) Tachycardia (Acute) Medical History H/O sigmoidoscopy w/polypectomy, DOS 08/27/18 Osteoarthritis of right knee Hypertensive disorder Hemorrhoids Surgical History History of total right hip replacement History of tubal ligation History of appendectomy History of cholecystectomy History of cataract surgery H/O wrist surgery Social History Smoking/Tobacco Use Status: Never Smoking risk assessment performed?: Yes Alcohol Intake: current Alcohol Intake frequency: holidays/special occasions only Drug use: Never Substance use type: does not use Details: alcohol: t-30 Housing: house Do you feel safe at home: Yes Do you feel safe in your relationship?: Yes Additional Social history: [facility] Time Spent with Patient Time Spent with Patient: <45 minutes Time was spent: preparing to see the patient(eg.review tests), obtaining and/or reviewing separately otained hiistory, counseling the patient and care coordination
--- NOTE | 2025-02-06 14:00 | PDOC.CMDIS ---
Date of service: 02/06/25 Time of Service: 14:01 LACE Index Scoring Tool Questions: Length of Stay (in days): 1 Was the patient admitted via the E.D.?: No E.D. Visits: 0 Answers: Total Score: 1 Risk of Readmission: Low Risk Care Management Discharge Plan Reason for Hospitalization: Left total hip replacement Discharge Plan: Kasia is discharged home today with no new home care services. She will f/u with ortho on 02/17 at 1:45 and also with her PCP. Kasia was given very good written discharge instructions and denied any questions or concerns. Kasia will transport home in a private vehicle with her daughter. Patient/Family Education Needs: Review of discharge instructions, activity, limitations, and discuss Ask me 3. SDOH Health Related Social Needs: Health related social needs education Health related social needs details none per patient Health related social needs details: none per patient
== END 2025-02-06 14:56 | disposition home or self-care (01) ==
LOC: SUR 07:18 → MS 02-06 07:41
PROVIDERS: Nurse Anesthetist, Certified Registered; Admitting Provider Student in an Organized Health Care Education/Training Program; PCP Physician Assistant Medical; Visit Provider Student in an Organized Health Care Education/Training Program
PROC: (CPT 27130; principal; 2025-02-05 09:00)
DX: M16.12 Unilateral primary osteoarthritis, left hip (principal); Z79.899 Other long term (current) drug therapy; I10 Essential (primary) hypertension; Z96.641 Presence of right artificial hip joint; E53.8 Deficiency of other specified B group vitamins; E78.1 Pure hyperglyceridemia; R00.0 Tachycardia, unspecified; D50.9 Iron deficiency anemia, unspecified; E83.42 Hypomagnesemia
CPT/HCPCS: 27130; 20985; 97162; 97530; 73501; 84132; C1776; G0378; J0166; J0690; J1100; J1171; J1885; J2371; J2401; J2405; J2704; J2795; J3010; J3475

== ENCOUNTER 2025-02-17 14:29 | Outpatient (CLI) | payer MEDICARE, SELFPAY ==
--- NOTE | 2025-02-17 13:45 | DI.RAD_ITS ---
Exam(s) XR HIP LT COMPLETE AP PELVIS EXAM: XR HIP LT COMPLETE AP PELVIS INDICATION: s/p left GERA. COMPARISON: CR XR HIP LT COMPLETE AP PELVIS from 07/29/2024 XA XR HIP LT IN OR from 02/05/2025 TECHNIQUE: 2D digital imaging was performed. Two views. FINDINGS: Stable alignment of bilateral hip prostheses. No abnormal bony lucencies. DATA REPOSITORY: RADIATION DOSE DELIVERED:
== END 2025-02-17 14:30 | disposition home or self-care (01) ==
LOC: DIORS 14:30
PROVIDERS: PCP Physician Assistant Medical; Referring Provider Physician Assistant Medical; Visit Provider Physician Assistant
DX: Z96.642 Presence of left artificial hip joint (principal); Z47.1 Aftercare following joint replacement surgery
CPT/HCPCS: 99024; 73502

== ENCOUNTER → 2025-03-24 13:30 | Outpatient (BNVA) | payer MEDICARE, SELFPAY | PROVIDERS: PCP Physician Assistant Medical; Referring Provider Physician Assistant Medical; Visit Provider Student in an Organized Health Care Education/Training Program | DX: Z47.1 Aftercare following joint replacement surgery (principal); Z96.642 Presence of left artificial hip joint; R10.9 Unspecified abdominal pain | CPT/HCPCS: 99024 ==